=== PATIENT | female | born 1950 | race Caucasian/White ===

== ENCOUNTER → 2017-12-26 | Day surgery (SDC) | payer OTHER ==
[~2017-12-26] MED LIST: INTESTINEX1 CA1 PO; LABETALOL HCL100 MG PO; OMEPRAZOLE20 M1 PO; PERCOCET 5/3251 TAB PO; PRAVASTATIN SOD20 MG PO; PRILOSEC20 MG PO
== END | disposition home or self-care (01) ==
LOC: ADM 12-09 13:00 → CIR.AMB 12-19 13:00 → AMB-ENDOS 05:30 → CIR.AMB 13:00
DX: C20 Malignant neoplasm of rectum (principal)

== ENCOUNTER 2019-08-27 05:30 | Day surgery (SDC) | payer OTHER | END 2019-08-27 09:35 | disposition home or self-care (01) | LOC: AMB-ENDOS 05:30 | DX: D12.2 Benign neoplasm of ascending colon (principal); Z93.3 Colostomy status ==